=== PATIENT | female | born 1990 | race Caucasian/White ===

== ENCOUNTER 2016-09-29 04:05 | Inpatient (IN) | payer BC ==
[~2016-09-29] VITALS: Ht 162.6 cm; Wt 62.1 kg
[2016-09-29] MEDS ORDERED: LR 1,000 ML IV SCH (05:40)
[2016-09-29] MEDS ORDERED: OXYTOCIN/NORMAL SALINE 1,000 ML IV SCH (05:44)
[2016-09-29] MEDS ORDERED: RHO(D) IMMUNE GLOBULIN/MALTOSE 1500 UNITS/1.3 ML (WINHRO) IM PRN (05:45)
[2016-09-29] MEDS ORDERED: IBUPROFEN 600 MG TABLET ONE (05:45)
[2016-09-29] MEDS ORDERED: SENNOSIDES/DOCUSATE SODIUM 1 TAB TABLET(SENOKOT-S) PO PRN (05:45)
[2016-09-29] MEDS ORDERED: METHYLERGONOVINE MALEATE 0.2 MG TABLET PO PRN (05:45)
[2016-09-29] MEDS ORDERED: MEASLES,MUMPS&RUBELLA VACC/PF 12500 UNIT/0.5 ML VIAL SUBQ PRN (05:45)
[2016-09-29] MEDS ORDERED: LANOLIN 7 GM OINT. TP PRN (05:45)
[2016-09-29] MEDS ORDERED: DOCUSATE SODIUM 100 MG CAPSULE PO PRN (05:45)
[2016-09-29] MEDS ORDERED: DERMOPLAST SPRAY TP PRN (05:45)
[2016-09-29] MEDS ORDERED: GLYCERIN/WITCH HAZEL (TUCKS PADS) TP PRN (05:45)
[2016-09-29] MEDS ORDERED: HYDROCORTISONE 0.5%, 28.35 GM TOPICAL CREAM TP PRN (05:45)
[2016-09-29] MEDS ORDERED: ANUSOL 1 EA SUPP.RECT (PREPARATION H) RC PRN (05:45)
[2016-09-29] MEDS ORDERED: OXYTOCIN/NORMAL SALINE 1,000 ML IV ONE (08:00)
[2016-09-29] MEDS: IBUPROFEN 600 MG TABLET PO SCH ×3 (11:26→23:55)
[2016-09-29] MEDS ORDERED: LIDOCAINE PF 1% 30ML(POUR BTL) INJ ONE (15:00)
[2016-09-30] MEDS: IBUPROFEN 600 MG TABLET PO SCH ×2 (06:10→06:15)
== END 2016-09-30 10:50 | disposition home or self-care (01) | DRG 775 ==
LOC: SPU 04:05
PROVIDERS: ADMIT Specialist; ATTEND Specialist
PROC: 10E0XZZ Delivery of Products of Conception, External Approach (ICD-10-PCS; principal; 2016-09-29)
PROC: 0KQM0ZZ Repair Perineum Muscle, Open Approach (ICD-10-PCS; 2016-09-29)
PROC: 3E0234Z Introduction of Serum, Toxoid and Vaccine into Muscle, Percutaneous Approach (ICD-10-PCS; 2016-09-29)
DX: O70.1 Second degree perineal laceration during delivery (principal); Z37.0 Single live birth; Z3A.40 40 weeks gestation of pregnancy; Z23 Encounter for immunization
CPT/HCPCS: J2001

== ENCOUNTER 2018-09-01 23:00 | Inpatient (IN) | payer OTHER ==
[~2018-09-01] VITALS: Ht 162.6 cm; Wt 59.4 kg
[~2018-09-01 23:00] MED LIST: TEMAZEPAM 15 MG CAPSULE PO PRN
[2018-09-01] MEDS ORDERED: RHO(D) IMMUNE GLOBULIN/MALTOSE 1500 UNITS/1.3 ML (WINHRO) IM PRN (23:30)
[2018-09-01] MEDS ORDERED: OXYTOCIN 10 UNIT/ML VIAL IM ONE (23:30)
[2018-09-01] MEDS ORDERED: DOCUSATE SODIUM 100 MG CAPSULE PO PRN (23:30)
[2018-09-01] MEDS ORDERED: DERMOPLAST SPRAY TP PRN (23:30)
[2018-09-01] MEDS ORDERED: WITCH HAZEL LEAF 1 MED.PAD MED.PAD TP PRN (23:30)
[2018-09-01] MEDS ORDERED: OXYCODONE/ACETAMINOPHEN 5-325 TABLET PO PRN ×2 (23:30)
[2018-09-01] MEDS ORDERED: SENNOSIDES/DOCUSATE SODIUM 1 TAB TABLET(SENOKOT-S) PO PRN (23:30)
[2018-09-01] MEDS ORDERED: DIPH-TET-PERTUS Vaccine 0.5 ML VIAL (ADACEL) I.M. PRN (23:30)
[2018-09-01] MEDS ORDERED: MEASLES,MUMPS&RUBELLA VACC/PF 12500 UNIT/0.5 ML VIAL SUBQ PRN (23:30)
[2018-09-01] MEDS ORDERED: HYDROcodone/ACETAMIN 5-325 MG TAB (NORCO/ VICODIN) PO PRN (23:30)
[2018-09-01] MEDS ORDERED: HYDROCORTISONE 0.5%, 28.35 GM TOPICAL CREAM TP PRN (23:30)
[2018-09-01] MEDS ORDERED: ANUSOL 1 EA SUPP.RECT (PREPARATION H) RC PRN (23:30)
[2018-09-01] MEDS ORDERED: OXYTOCIN/0.9 % SODIUM CHLORIDE 1,000 ML IV ONE (23:33)
[2018-09-02] MEDS ORDERED: IBUPROFEN 600 MG TABLET ONE (01:10)
[2018-09-02 04:40] VITALS: BP_SYST 117
[2018-09-02 06:52] LABS: BASOPHILS % (AUTO) 0.3 % (0.0-2.0); EOSINOPHILS % (AUTO) 0.1 % (0.0-4.0); HEMATOCRIT 40.2 % (36-48); HEMOGLOBIN 13.7 g/dL (12.0-16.0); LYMPHOCYTES # (AUTO) 1.2 K/uL (1.0-5.5); LYMPHOCYTES % (AUTO) 8.2 % (20.5-51.5); MEAN CORPUSCULAR HEMOGLOBIN 30 pg (27-31); MEAN CORPUSCULAR HGB CONC 34 % (32-36); MEAN CORPUSCULAR VOLUME 88 fL (79.0-98.0); MONOCYTES # (AUTO) 0.9 K/uL (0.0-1.0); MONOCYTES % (AUTO) 6.1 % (1.7-9.3); NEUTROPHILS # (AUTO) 12.5 K/uL (1.8-7.7); NEUTROPHILS % (AUTO) 85.3 % (40.0-70.0); PLATELET COUNT (AUTO) 156 K/uL (130-430); RED BLOOD CELL COUNT(AUTO) 4.59 MIL/uL (4.2-6.2); RED CELL DISTRIBUTION WIDTH 12.6 % (9.0-15.0); WHITE BLOOD COUNT (AUTO) 14.6 K/uL (4.8-10.8)
[2018-09-02] MEDS: IBUPROFEN 600 MG TABLET PO SCH ×2 (12:31→18:20)
[2018-09-03] MEDS: IBUPROFEN 600 MG TABLET PO SCH ×3 (12:15→17:30)
== END 2018-09-03 23:02 | disposition home or self-care (01) | DRG 807 ==
LOC: SPU 23:00
PROVIDERS: ADMIT Specialist; ATTEND Specialist
PROC: 10E0XZZ Delivery of Products of Conception, External Approach (ICD-10-PCS; principal; 2018-09-01)
DX: O80 Encounter for full-term uncomplicated delivery (principal); Z37.0 Single live birth; Z3A.38 38 weeks gestation of pregnancy
CPT/HCPCS: 36415; 85025; 86592; 86886; 86900; 86901; J2590